=== PATIENT | female | born 1985 ===

== ENCOUNTER 2021-06-24 11:00 | Inpatient (IN) | payer OTHER ==
[~2021-06-24] VITALS: Ht 167.6 cm; Wt 82.6 kg
[2021-06-28] MEDS ORDERED: NAPR500T14 PO (11:59)
[2021-06-28] MEDS ORDERED: Tylenol #3 PO (11:59)
== END 2021-06-28 13:38 | disposition home or self-care (01) | DRG 743 ==
LOC: O/R 06-26 06:22 → OB/GYN 06-26 06:22
PROVIDERS: ADMIT Obstetrics & Gynecology; ATTEND Obstetrics & Gynecology
PROC: 0JQC0ZZ Repair Pelvic Region Subcutaneous Tissue and Fascia, Open Approach (ICD-10-PCS; 2021-06-26)
PROC: 0USG0ZZ Reposition Vagina, Open Approach (ICD-10-PCS; 2021-06-26)
PROC: 0UQF0ZZ Repair Cul-de-sac, Open Approach (ICD-10-PCS; 2021-06-26)
PROC: 0TJB8ZZ Inspection of Bladder, Via Natural or Artificial Opening Endoscopic (ICD-10-PCS; 2021-06-26)
PROC: 0UT97ZZ Resection of Uterus, Via Natural or Artificial Opening (ICD-10-PCS; principal; 2021-06-26 11:30)
DX: N72 Inflammatory disease of cervix uteri (principal); Z20.822 Contact with and (suspected) exposure to COVID-19; N81.11 Cystocele, midline; N81.5 Vaginal enterocele